=== PATIENT | male | born 1950 | race Caucasian/White ===

== ENCOUNTER 2023-12-19 12:46 | Emergency (ER) | payer SELFPAY ==
[2023-12-19 12:47] VITALS: BP 169/102
[2023-12-19 15:06] VITALS: BP 153/100
--- NOTE | 2023-12-19 15:16 | ED.GENMED ---
History of Present Illness
General
Chief Complaint: Abdominal Pain
Source: patient
Time Seen by Provider: 12/19/23 14:46
Travel History
Have you had any contact with someone who has COVID-19?: No
Do you have any symptoms of coronavirus? Fever > 100 degrees, chills, cough, shortness of breath, sore throat, loss of taste or smell, muscle aches, or headache?: No
History of Present Illness
History of Present Illness:
73-year-old male presents to the emergency room complaining of loose stools for the past 3 days. He did have some lower abdominal pain for the first 2 days of the illness. Today no abdominal pain. Denies nausea vomiting though he has not consumed
much. Patient has a history of diverticulitis and was concerned he was having recurrence.
Past History
Past History
ED Past Medical History: CAD, HTN and Hypercholesterolemia
ED Past Surgical History: Cardiac
Social History
Tobacco: Non-smoker
Alcohol: None
Drug: None
Personal:
Living: with family
Employment: Retired
Family History
Family History: Other (non contributory)
Phy Exam
Physical Exam
Physical Exam:
General: Awake, Alert, Oriented X3. No acute distress.
Vitals: unremarkable
Head: Atraumatic
Eyes: Pupils equal, EOMI
Throat: Airway intact, no exudates
Neck: Trachea midline
Lungs: Clear and equal b/l
Heart: Regular rate, no murmurs
Abd: Soft, Nontender, No pulsatile mass
Neuro: Nonfocal
Skin: Warm, dry, no rash
Extremities: pulses equal b/l, no edema
Course
Orders/Labs/Results
Orders:
Orders
12/19/23 15:15
0.9% Sodium Chloride 1000 ml [Nss] 1,000 ml IV BOLUS
12/19/23 15:19
Basic Metabolic Panel Urgent
COVID-19 Antigen Urgent
Source: Nasal Swab
Complete Blood Count/With Diff Urgent
Influenza A+B Rapid Molecular Urgent
[facility] Source: Nasal Swab
Specimen Description:
Abnormal Lab Results
12/19/23
15:19
RBC 4.45 L 10^6/uL
(4.70-6.10)
MCV 94.4 H fL
(80.0-94.0)
MCH 34.2 H pg
(27.0-31.0)
Plt Count 121 L 10^3/uL
(130-400)
Absolute Lymphs (auto) 0.7 L 10^3/uL
(1.2-3.4)
Absolute Monos (auto) 0.7 H 10^3/uL
(0.1-0.6)
Neutrophils % 78.0 H %
(42.2-75.2)
Lymphocytes % 11.0 L %
(20.5-51.1)
Monocytes % 10.4 H %
(1.7-9.3)
BUN 30 H mg/dl
(9-20)
12/19/23 15:19
12/19/23 15:19
Vital Signs
Initial and Last Documented VS:
Initial Vital Signs
Temp Pulse Resp BP Pulse Ox
97.2 F 91 16 169/102 98
12/19/23 12:47 12/19/23 12:47 12/19/23 12:47 12/19/23 12:47 12/19/23 12:47
Last Documented Vital Signs
Temp Pulse Resp BP Pulse Ox
97.2 F 83 16 154/96 97
12/19/23 12:47 12/19/23 16:10 12/19/23 16:10 12/19/23 16:10 12/19/23 16:10
MDM/Problems Addressed
Differential Diagnosis Includes:
Diverticulitis, gastroenteritis, influenza, COVID
MDM/Problems Addressed:
Flu test positive. Labs are reassuring. Patient tolerating oral intake and actually feeling better today than he did yesterday. Stable for discharge home. No Tamiflu.
*Pulse Oximetry
Patient hypoxic: no
*Critical Care Note
Total Time (30-74mins, 75-104mins- exclusive of procedures): Not Applicable
ED Attending Note
-
Portions of this chart may have been created with voice recognition software.� Occasional wrong word or��sound alike� substitutions may have occurred due to the inherent limitations of voice recognition software.
Discharge Plan
Departure
Patient Disposition: Home (Routine Discharge)
Date of Disposition: 12/19/23
Time of Disposition: 16:33
Patient with high blood pressure during this ER visit?: Yes
Condition: Good
Discharge Problem:
Influenza A
Instructions: Flu, Adult ED
Prescriptions:
No Action
amoxicillin-pot clavulanate 875-125 mg tablet
1 tab PO Q12H 7 Days Qty: 14 0RF
atorvastatin 40 MG tablet
40 mg PO QPM Qty: 90 0RF
acetaminophen 325 MG tablet
650 mg PO Q6HPRN PRN (Reason: pain) 0RF
carvedilol 6.25 MG tablet
6.25 mg PO Q12 Qty: 180 0RF
losartan 100 MG tablet
100 mg PO DAILY Qty: 90 0RF
sertraline 50 MG tablet
50 mg PO DAILY Qty: 90 0RF
melatonin 5 MG tablet
5 mg PO HS Qty: 90 0RF
apixaban [Eliquis] 5 MG tablet
5 mg PO Q12 Qty: 180 0RF
Referrals:
Freida Gee CRNP [Family Provider] -
Interventions
Interventions:
*Risk Screen - Suicide Last Done: 12/19/23 12:47
*General Assessment Last Done: 12/19/23 12:47
*Neglect/Abuse Screening Last Done: 12/19/23 12:47
ED- Fall Risk Assessment Last Done: 12/19/23 16:37
*ED COVID-19 Vaccine History Last Done: 12/19/23 15:04
*Nursing Disposition Last Done: 12/19/23 17:23
MB-Dqdomx-Hgpzimzama Assessment Last Done: 12/19/23 15:04
Discharge Date and Time
Discharge Date/Time: 12/19/23 17:05
[2023-12-19] MEDS: NSS 1000 IV (15:25)
[2023-12-19 15:52] LABS: % Basophils 0.3 % (0-2); % Immature Granulocytes 0.3 % (0-0.5); % Monocytes 10.4 % (1.7-9.3); Absolute Lymphocytes 0.7 10^3/uL (1.2-3.4); Absolute Monocytes 0.7 10^3/uL (0.1-0.6); Absolute Neutrophils 4.9 10^3/uL (1.4-6.5); Hemoglobin 15.2 g/dL (13.0-18.0); Mean Corp Hgb Conc. 36.2 g/dL (33.0-37.0); Mean Corpuscular Hgb 34.2 pg (27.0-31.0); Mean Corpuscular Volume 94.4 fL (80.0-94.0); Mean Platelet Volume 10.2 fL (7.4-10.4); Nucleated Red Blood Cells % 0 % (-); Platelet Count 121 10^3/uL (130-400); Red Blood Cell Count 4.45 10^6/uL (4.70-6.10); Red Cell Dist. Width 12.1 % (11.5-14.5); White Blood Cell Count 6.3 10^3/uL (4.8-10.8)
[2023-12-19 16:04] LABS: COVID-19 Antigen Negative (Negative)
[2023-12-19 16:10] VITALS: BP 154/96
[2023-12-19 16:18] LABS: Blood Urea Nitrogen 30 mg/dl (9-20); Calcium 9.1 mg/dl (8.4-10.2); Carbon Dioxide 24 mmol/L (22-30); Chloride 104 mmol/L (98-107); Glucose 94 mg/dl (70-99); Sodium 135 mmol/L (135-145); eGFR > 60.00
== END 2023-12-19 17:05 | disposition home or self-care (01) ==
LOC: EMR 12:46
PROVIDERS: EMERGENCY PHYSICIAN Emergency Medicine; FAMILY PHYSICIAN Nurse Practitioner
DX: J10.1 Influenza due to other identified influenza virus with other respiratory manifestations (principal); I10 Essential (primary) hypertension; Z11.52 Encounter for screening for COVID-19
CPT/HCPCS: 99284; 96360; 80048; 85025; 87502; 87811